=== PATIENT | female | born 1960 | race American Indian/Alaskan Native ===

== ENCOUNTER 2018-01-16 07:08 | Day surgery (SDC) | payer OTHER ==
[2017-03-27 16:45] VITALS: BMI 33.7
--- NOTE | 2018-01-16 08:42 | CP.SDSHP ---
Same Day Surgery H & P - History Proposed Procedure: colonoscopy Pre-Op Diagnosis: colon CA screen - Allergies Allergies: Allergies latex Allergy (Verified 01/16/18 08:15) ITCHING shelli Allergy (Verified 01/16/18 08:15) RASH ibuprofen [From Motrin] Adverse Reaction (Verified 01/16/18 08:15) ITCHING - Physical Exam Vital Signs: Vital Signs 01/16/18 07:45 Temperature 97.5 F L Pulse Rate 67 Respiratory 19 Rate Blood Pressure 141/79 O2 Sat by Pulse 98 Oximetry Mental Status: Alert & Oriented x3 Neuro: WNL Heart: WNL Lungs: WNL GI: WNL - {Optional Preform as Required} Abdomen: WNL - Impression Impression: procced with colonoscopy Pt. Evaluated Today:Candidate for Anesthesia & Procedure: Yes Short Stay Discharge - Short Stay Discharge Admitting Diagnosis/Reason for Visit: ENCOUNTER FOR SCREENING FOR MALIGNANT NEOPLASM OF Disposition: HOME/ ROUTINE
[2018-01-16] MEDS ORDERED: Propofol 10 mg/ml Inj (20 ML) ONE ×4 (08:43→09:13)
[2018-01-16] MEDS ORDERED: Midazolam 2 MG/2 ML VIAL ONE (08:51)
[2018-01-16 09:46] VITALS: TEMP 97.3
[2018-01-16 10:31] VITALS: BP 105/78; PULSE 77; RESP 18; O2SAT 100
== END 2018-01-16 11:50 | disposition home or self-care (01) ==
LOC: C.ENDO 07:08
PROVIDERS: ATTEND Internal Medicine Gastroenterology
DX: K57.30 Diverticulosis of large intestine without perforation or abscess without bleeding (principal); K64.8 Other hemorrhoids; Z98.84 Bariatric surgery status; J44.9 Chronic obstructive pulmonary disease, unspecified; E04.9 Nontoxic goiter, unspecified; Z12.11 Encounter for screening for malignant neoplasm of colon; Z80.3 Family history of malignant neoplasm of breast
CPT/HCPCS: 45380; 84703; 88305; J2001; J2250; J2704